=== PATIENT | female | born 1995 | race Caucasian/White ===

== ENCOUNTER 2017-11-29 13:27 | Observation (INO) | payer BC, OTHER ==
[~2017-11-29] VITALS: Ht 157.5 cm; Wt 77.1 kg
[2017-11-29 14:26] LABS: BASOPHILS # (AUTO) 0.03 x10^3/uL (0-0.3); BASOPHILS % (AUTO) 0 % (0-1); EOSINOPHILS # (AUTO) 0.23 x10^3/uL (0-0.8); EOSINOPHILS % (AUTO) 3 % (1-7); LYMPHOCYTES # (AUTO) 2.17 x10^3/uL (1-6.1); LYMPHOCYTES % (AUTO) 25 % (22-44); MD NO; MEAN CORPUSCULAR HEMOGLOBIN 31.8 pg (27.0-34.8); MEAN CORPUSCULAR VOLUME 93.5 fL (80-100); MEAN PLATELET VOLUME 8.4 fL (7.4-10.4); MONOCYTES # (AUTO) 0.59 x10^3/uL (0-1.4); MONOCYTES % (AUTO) 7 % (2-9); NEUTROPHILS # (AUTO) 5.67 x10^3/uL (1.8-8.0); NEUTROPHILS % (AUTO) 65 % (42-75); PLATELET COUNT 236 x10^3/uL (130-400); RED BLOOD COUNT 4.38 x10^6/uL (3.82-5.3); RED CELL DISTRIBUTION WIDTH 13.7 % (9.6-15.2)
[2017-11-29 14:36] LABS: ALBUMIN 3.7 g/dL (3.4-5.0); ANION GAP 7 mmol/L (5-15); CALCIUM 8.3 mg/dL (8.5-10.1); CHLORIDE 106 mmol/L (98-107)
[2017-11-29] MEDS ORDERED: NICOTINE 7 MG/24 HR PATCH.TD24 ONE (14:36)
[2017-11-29 14:41] LABS: ALANINE AMINOTRANSFERASE 18 U/L (12-78); ALKALINE PHOSPHATASE 99 U/L (45-117); BILIRUBIN,TOTAL 0.2 mg/dL (0.2-1.0); CREATININE 0.85 mg/dL (0.55-1.02); TOTAL PROTEIN 7.8 g/dL (6.4-8.2)
[2017-11-29 14:43] LABS: ACETAMINOPHEN < 2 mcg/mL (10-30); SALICYLATE LEVEL < 1.7 mg/dL (2.8-20.0)
[2017-11-29 15:37] LABS: CLUE CELLS NONE SEEN (NONE SEEN); WET PREP WBCS MODERATE (FEW)
[2017-11-29] MEDS: NICOTINE 7 MG/24 HR PATCH.TD24 TD SCH (15:42)
[2017-11-29] MEDS ORDERED: DIVA500T2 PO ×2 (15:50)
[2017-11-29] MEDS ORDERED: QUET400T4 PO (15:50)
[2017-11-29] MEDS ORDERED: DULO60CA7 PO (15:50)
[2017-11-29] MEDS ORDERED: ACETAMINOPHEN 325 MG TABLET PO PRN (16:00)
[2017-11-29] MEDS ORDERED: ZIPRASIDONE 20 MG INJ IM PRN (16:00)
[2017-11-29] MEDS ORDERED: BENZTROPINE 1 MG/ML, 2 ML IM PRN (16:00)
[2017-11-29] MEDS ORDERED: BENZTROPINE 1 MG TABLET PO PRN (16:00)
[2017-11-29] MEDS ORDERED: DOCUSATE 100 MG CAPSULE PO PRN (16:00)
[2017-11-29 16:05] LABS: HCG UR SG 1.024 (1.003-1.030)
[2017-11-29 16:10] LABS: MICROSCOPIC AUTO
[2017-11-29 16:12] LABS: AMPHETAMINE SCREEN, URINE Negative (Negative); BARBITURATE SCREEN, URINE Negative (Negative); BENZODIAZEPINE SCREEN, URINE Negative (Negative); CANNABINOID SCREEN, URINE Negative (Negative); COCAINE SCREEN, URINE Negative (Negative); METHADONE SCREEN, URINE Negative (Negative); OPIATE SCREEN, URINE Negative (Negative)
[2017-11-29 16:13] LABS: CULTURE INDICATED? NO
[2017-11-29 19:57] VITALS: BP 121/76
[2017-11-29] MEDS: DIVALPROEX 500 MG TABLET.DR PO SCH (21:10)
[2017-11-29] MEDS: QUETIAPINE 200 MG TABLET PO SCH (21:10)
[2017-11-30 08:17] VITALS: BP 107/63
[2017-11-30] MEDS: DULOXETINE 30 MG CAPSULE.DR PO SCH (09:56)
[2017-11-30] MEDS: DIVALPROEX 500 MG TABLET.DR PO SCH ×2 (09:56→20:20)
[2017-11-30] MEDS: NICOTINE 7 MG/24 HR PATCH.TD24 TD SCH (15:16)
[2017-11-30 19:44] VITALS: BP 121/68
[2017-11-30] MEDS: QUETIAPINE 200 MG TABLET PO SCH (20:21)
[2017-12-01 08:35] VITALS: BP 107/68
[2017-12-01] MEDS: DULOXETINE 30 MG CAPSULE.DR PO SCH (08:46)
[2017-12-01] MEDS: DIVALPROEX 500 MG TABLET.DR PO SCH ×2 (08:46→21:13)
[2017-12-01] MEDS: NICOTINE 7 MG/24 HR PATCH.TD24 TD SCH (16:59)
[2017-12-01 20:04] VITALS: BP 117/79
[2017-12-01] MEDS: QUETIAPINE 200 MG TABLET PO SCH (21:14)
[2017-12-02] MEDS: DIVALPROEX 500 MG TABLET.DR PO SCH (09:05)
[2017-12-02] MEDS: DULOXETINE 30 MG CAPSULE.DR PO SCH (09:06)
== END 2017-12-02 10:07 ==
LOC: ED 16:00 → EDIP 17:21 → 2N 18:34
PROVIDERS: ADMIT Internal Medicine; ATTEND Internal Medicine
DX: R45.851 Suicidal ideations (principal); F31.9 Bipolar disorder, unspecified; N89.8 Other specified noninflammatory disorders of vagina; Z91.5 Personal history of self-harm
CPT/HCPCS: 36415; 80053; 80307; 80329; 81001; 81025; 85025; 87210; 87491; 87591; 87808; 99285; G0378; G0480